=== PATIENT | male | born 1950 | race Two or more races ===

== ENCOUNTER → 2019-02-19 | Day surgery (SDC) | payer OTHER, MEDICARE ==
[2019-02-17 12:33] LABS: BASOPHILS # (AUTO) 0.1 (0.0-0.1); BASOPHILS % 1.3 % (0.0-1.0); EOSINOPHILS # (AUTO) 0.2 (0.0-0.4); EOSINOPHILS % 2.7 % (0.0-6.0); HEMOGLOBIN 13.9 g/dL (14.0-18.0); LYMPHOCYTES # (AUTO) 2.7 (1.0-3.2); LYMPHOCYTES % 39.1 % (18.0-39.1); MEAN CORPUSCULAR HEMOGLOBIN 26.1 pg (28-32); MEAN CORPUSCULAR HGB CONC 30.9 g/dL (31-35); MEAN CORPUSCULAR VOLUME 84.4 fL (81-99); MONOCYTES # (AUTO) 0.8 (0.2-0.8); MONOCYTES % 11.2 % (4.4-11.3); NEUTROPHILS # (AUTO) 3.1 (2.1-6.9); PLATELET COUNT 264 x10e3/uL (140-360); RED BLOOD COUNT 5.33 x10e6/uL (4.3-5.7)
--- NOTE | 2019-02-17 13:00 | Diagnostic Imaging Report ---
EXAM: CHEST 2 VIEWS DATE: 02/17/2019 12:02 PM INDICATION: Preoperative evaluation for prostate biopsy COMPARISON: None FINDINGS: The trachea is midline. The lungs are symmetrically expanded without evidence for large focal consolidation, pneumothorax, or significant pleural effusion. The cardiomediastinal silhouette and pulmonary vasculature are within normal limits. No acute osseous abnormality is identified. The surrounding soft tissues are unremarkable. IMPRESSION: No acute cardiopulmonary process identified. Signed by: Dr. Juanito Camarena MD on 02/17/2019 12:56 PM
[~2019-02-19] MED LIST: ASPIR 8181 MG PO; B&O 60MG R/S 60 MG SUPP PR ONE; CLINDAMYCIN 600MG / 50ML 50 ML IV ONE; COQ-10100 MG PO; DEXAMETHASONE SOD PHOS INJ 4 MG/ML VIAL ONE; DOXAZOSIN MESYLA2 MG PO; DOXAZOSIN MESYLA4 MG PO; FISH OIL 1,0001 EAC2 PO; FOSINOPRIL SODI10 MG PO; FUROSEMIDE PO; GENTAMICIN 80MG/NS 100 ML 200 ML IV ONE; IOPAMIDOL 610MG/1ML 300 MG/ML VIAL IV ONE; LIDOCAINE HCL 2% JELLY 5 ML TUBE ONE; LIDOCAINE HCL 2% LOCAL INJ 5 ML SDV VIAL INJ ONE; MIDAZOLAM HCL 2 MG/2 ML VIAL ONE; MULTI-VITAMIN1 EACH PO; NORVASC10 MG PO; ONDANSETRON HCL INJ 2MG/ML 2ML 2 MG/ML VIAL ONE; PIPER-TAZ 3.375 GM 50 ML ONE; PROPOFOL IV EMULSION 10 MG/ML 20 ML VIAL ONE; SEVOFLURANE INHAL SOLN 250 ML PEN BTL ONE; SIMVASTATIN20 MG PO; VITAMIN D1000 UNI1 PO; ZINC SULFATE220 MG PO; turmeric PO; vascepa PO; vitamin c PO
--- OUTSIDE RECORDS SUMMARY | 2019-02-19 07:22 | XMS REPORT ---
Author Author [facility] Address Unknown Phone Unavailable Care Team Providers [facility] Name Role Phone MARIBEL CARRILLO Unavailable Unavailable Problems This patient has no known problems. Allergies, Adverse Reactions, Alerts This patient has no known allergies or adverse reactions. Medications This patient has no known medications. Results Test Description Test Time Test Comments Text Results Atomic Results Result Comments CHEST 2 VIEWS 2019-02-17 12:55:00 [place] [address] Patient Name: LANCE ELLINGTON MR #: [id number] : 1950 Age/Sex: 68/M Req #: [id number] Adm Physician: Ordered by: MARIBEL CARRILLO MD Report #: [id number] Location: OR Room/Bed: Procedure: [id number] DX/CHEST 2 VIEWS Exam Date: 02/17/19 Exam Time: 1234 REPORT STATUS: Signed EXAM: CHEST 2 VIEWS DATE: 02/17/2019 12:02 PM INDICATION: Preoperative evaluation for prostate biopsy COMPARISON: None FINDINGS: The trachea is midline. The lungs are symmetrically expanded without evidence for large focal consolidation, pneumothorax, or significant pleural effusion. The cardiomediastinal silhouette and pulmonary vasculature are within normal limits. No acute osseous abnormality is identified. The surrounding soft tissues are unremarkable. IMPRESSION: No acute cardiopulmonary process identified. Signed by: Dr. Juanito Camarena MD on 02/17/2019 12:56 PM Dictated By: JUANITO CAMARENA MD Electronic ally Signed By: JUANITO CAMARENA MD on 02/17/19 1256 Transcribed By: PAPO on 02/17/19 1256 COPY TO: MARIBEL CARRILLO MD
[2019-02-19 11:20] VITALS: BP 133/80
--- NOTE | 2019-04-01 08:53 | Operative Report ---
DATE OF PROCEDURE: 02/19/2019 SURGEON: Ender Polanco MD PREOPERATIVE DIAGNOSES: 1. Elevated PSA. 2. Incomplete bladder emptying. POSTOPERATIVE DIAGNOSES: 1. Elevated PSA. 2. Incomplete bladder emptying. 3. Bladder stone. 4. BPH. OPERATIONS PERFORMED: 1. Prostate ultrasonography interpretation. 2. Interpretation of ultrasonographic guidance for needle biopsies. No radiologist present. 3. Transrectal needle biopsies of the prostate (separate procedure performed for the elevated PSA). 4. Cystourethroscopy with cystolitholapaxy (separate performed for the patient's bladder stone). 5. Cystourethroscopy with bilateral ureteral catheterization and retrograde ureteropyelography (separate procedure performed for the obstructive BPH and incomplete bladder emptying). 6. Interpretation of retrograde ureteropyelography. 7. Supervision of fluoroscopy, no radiologist present. ANESTHESIA: General. COMPLICATIONS: None. CLINICAL SUMMARY: Danial Bee is a 68-year-old man with a previous prostate biopsies and elevated PSA. He was brought for the above procedures. He is aware of the risks of bleeding, infection, injury to adjacent structures, need for additional procedures and elected to proceed. OPERATIVE PROCEDURE IN DETAIL: Informed consent was verified. Danial Bee was properly identified and taken to the operating room, placed on the cystoscopy table in supine position. Anesthesia was uneventfully begun. The patient was then carefully and gently repositioned in dorsal lithotomy position with all pressure points well padded. Digital rectal examination was performed. Digital rectal examination revealed a 50 g prostate that is smooth, nonfluctuant without a specific nodule with bilateral induration at the base. There was a posterior tract that was present in the anal canal. Transrectal sonography was performed. Interpretation of transrectal ultrasonography: Real-time ultrasonography revealed a prostate that was 67 mL in size. There were some diffuse calcifications most prominently at the transition zone. We could see hyperechogenicities consistent with the previous UroLift implants. The seminal vesicles were unremarkable. The prostate capsule was smooth. There were no suspicious hypoechoic areas that could be appreciated except for possible minimally hypoechoic area at the right apex. With ultrasonographic guidance, needle biopsies of the prostate were taken. A total of 18 biopsies were taken. Three biopsies were taken at each of 6 places. These were sent in 6 containers differentiating them by right versus left and base versus mid versus apex. Once all biopsies were performed, the patient's genitalia were prepared and draped in usual sterile fashion. The cystoscope sheath with a visual obturator in place was atraumatically inserted in the patient's urethra. It was guided down the unremarkable urethra. It was only notable for some tortuosity. We went through normal sphincteric region into the prostate bed, which exhibited some calcifications of the prostatic urethral mucosa. There were kissing lateral lobes present, but there was a small channel that was anterior as a result of the UroLift implant. There was a stone at the left lateral lobe, which we believe formed on the UroLift implant. Panendoscopy of the bladder revealed no suspicious mucosal lesions, no tumors, and no diverticula. We then addressed the stone. Grasper was then utilized to fragment the stone and then we saw that there was a UroLift clip. We removed this clip in the string from the UroLift implant retracted into the prostatic parenchyma. The patient did have a small median lobe present. Normally positioned configured ureteral orifices were identified. An 8-Salvadorean catheter was used to cannulate each ureter and retrograde ureteral pyelograms were performed. Interpretation of retrograde ureteropyelography contrast was instilled in retrograde fashion bilaterally. There were no tumors, no stones, and no diverticula. Unobstructed drainage was observed bilaterally fluoroscopically. The patient's bladder was then drained, cystoscope was withdrawn, and the patient was uneventfully reversed from anesthesia and taken to recovery room in stable condition. Explicit postop instructions were given. We will follow the patient up in the office at which point in time, we will plan on uroflowmetry and bladder ultrasonography. Ender Polanco MD OH/MODL /[id number] cc: Syd Garcia MD MTDD
--- NOTE | 2019-04-01 13:13 | Operative Report ---
DATE OF PROCEDURE: 02/19/2019 SURGEON: Ender Polanco MD CONTINUATION: Interpretation of transrectal ultrasonography: Real-time ultrasonography revealed a prostate that was 67 mL in size. There were some diffuse calcifications most prominently at the transition zone. We could see hyperechogenicities consistent with the previous UroLift implant. The seminal vesicles were unremarkable. The prostate capsule was smooth. There were no suspicious hypoechoic areas that could be appreciated except for possible minimally hypoechoic area at the right apex. With ultrasonographic guidance, needle biopsies of the prostate were taken. A total of 18 biopsies were taken. Three biopsies were taken at each of 6 places. These were sent in 6 containers differentiating them by right versus left and base versus mid versus apex. Once all biopsies were performed, the patient's genitalia were prepared and draped in usual sterile fashion. The cystoscope sheath with a visual obturator in place was atraumatically inserted in the patient's urethra. It was guided down the unremarkable urethra. It was only notable for some tortuosity. We went through normal sphincteric region into the prostate bed, which exhibited some calcifications of the prostatic urethral mucosa. There were kissing lateral lobes present, but there was a small channel that was anterior as a result of the UroLift implant. There was a stone at the left lateral lobe, which we believe formed on the UroLift implant. Panendoscopy of the bladder revealed no suspicious mucosal lesions, no tumors, and no diverticula. We then addressed the stone. Grasper was then utilized to fragment the stone and then we saw that there was a UroLift clip. We removed this clip in the string from the UroLift implant retracted into the prostatic parenchyma. The patient did have a small median lobe present. Normally positioned configured ureteral orifices were identified. An 8-German catheter was used to cannulate each ureter and retrograde ureteral pyelograms were performed. Interpretation of retrograde ureteropyelography contrast was instilled in retrograde fashion bilaterally. There were no tumors, no stones, and no diverticula. Unobstructed drainage was observed bilaterally fluoroscopically. The patient's bladder was then drained, cystoscope was withdrawn, and the patient was uneventfully reversed from anesthesia and taken to recovery room in stable condition. Explicit postop instructions were given. We will follow the patient up in the office at which point in time, we will plan on uroflowmetry and bladder ultrasonography. MD JEREMY Dhillon /[id number]
== END | disposition home or self-care (01) ==
LOC: OR 07:16
PROVIDERS: ATTEND Urology
DX: N40.1 Benign prostatic hyperplasia with lower urinary tract symptoms (principal); R39.14 Feeling of incomplete bladder emptying; R97.20 Elevated prostate specific antigen [PSA]; Z01.810 Encounter for preprocedural cardiovascular examination; Z01.812 Encounter for preprocedural laboratory examination; Z01.811 Encounter for preprocedural respiratory examination; N21.0 Calculus in bladder
CPT/HCPCS: 36415; 52317; 55700; 71046; 74420; 76872; 76998; 85025; 88300; 88305; 88342; 93005; C1758; J1100; J1580; J2001 ×2; J2250; J2405; J2543; J2704; Q9967